=== PATIENT | female | born 1995 | race Caucasian/White ===

== ENCOUNTER 2020-04-01 15:41 | Emergency (ER) | payer MEDICAID, OTHER ==
[~2020-04-01] VITALS: Ht 160 cm; Wt 76.7 kg
[2020-04-01 16:22] VITALS: BP 119/67
--- NOTE | 2020-04-01 17:10 | NUR ---
PATIENT LEFT WITHOUT BEING SEEN BY DR. GARNER. NO FURTHER CARE PROVIDED FOR PATIENT.
== END 2020-04-01 17:10 | disposition left against medical advice (07) ==
LOC: MED 15:41
DX: T63.301A Toxic effect of unspecified spider venom, accidental (unintentional), initial encounter (principal); Z53.21 Procedure and treatment not carried out due to patient leaving prior to being seen by health care provider

== ENCOUNTER 2020-04-04 01:04 | Emergency (ER) | payer OTHER ==
[~2020-04-04] VITALS: Ht 160 cm; Wt 77.1 kg
[2020-04-04 01:20] VITALS: BP 128/76
--- NOTE | 2020-04-04 01:23 | NUR ---
TO LOBBY A/W BED AMBULATORY
[2020-04-04] MEDS ORDERED: VANCOMYCIN 1,000 MG in DEXTROSE 5% 250 ML IV ONE (02:40)
[2020-04-04] MEDS ORDERED: CLINDAMYCIN 300 MG in DEXTROSE 5% 50 ML IV ONE (02:40)
[2020-04-04] MEDS ORDERED: NACL 0.9% 2,000 ML IV ONE (02:40)
[2020-04-04] MEDS ORDERED: PIPERACILLIN/TAZOBACTAM 3.375 GM in DEXTROSE 5% 50 ML IV ONE (02:40)
--- NOTE | 2020-04-04 02:50 | NUR ---
PATIENT CALLED TO BE ON BED , NO RESPONSE PATIENT ELOPED FROM FACILITY. DISCHARGE INSTRUCTIONS NOT GIVEN TO PATIENT. DR. LOVETT NOTIFIED.
--- NOTE | 2020-04-04 02:55 | NUR ---
CALLED FOR THE SECOND TIME , NO RESPONSE
--- NOTE | 2020-04-04 03:00 | NUR ---
CALLED FOR THE THIRD TIME NO RESPONSE
== END 2020-04-04 02:50 | disposition left against medical advice (07) ==
LOC: MED 01:04
DX: L03.115 Cellulitis of right lower limb (principal); Z53.21 Procedure and treatment not carried out due to patient leaving prior to being seen by health care provider

== ENCOUNTER 2020-06-13 14:06 | Emergency (ER) | payer OTHER ==
[~2020-06-13] VITALS: Ht 157.5 cm; Wt 72.6 kg
[2020-06-13 14:14] VITALS: BP 129/74
--- NOTE | 2020-06-13 14:20 | NUR ---
ELMO SHELLEY FOR PREBOOK. PT HAS LMP 04/09/20 & CHECKED 2 WEEKS AGO & TODAY: POSITIVE. DENIES PAIN OR TRAUMA. VSS.
[2020-06-13 15:07] VITALS: BP 129/74
--- NOTE | 2020-06-13 15:07 | NUR ---
Discharge instructions given to police matron along with pre-book form. Pt released into custody of Michael SHELLEY.
== END 2020-06-13 15:07 ==
LOC: MED 14:06
DX: O26.891 Other specified pregnancy related conditions, first trimester (principal); Z02.89 Encounter for other administrative examinations
CPT/HCPCS: 81002; 81025; 99283